=== PATIENT | male | born 1935 | race Caucasian/White ===

== ENCOUNTER 2016-12-25 04:29 | Emergency (ER) | payer MEDICARE ==
[2016-12-25] MEDS ORDERED: IOPAMIDOL 370 (76%) 100 ML VIAL IV ONE (04:30)
[2016-12-25 05:29] LABS: ABSOLUTE NEUTROPHIL COUNT 8.2 K/mm3 (1.8-7.7); BASO % 0.2 % (0.2-1.0); EOS # 0.4 (0.0-0.5); EOS % 3.5 % (0.9-2.9); HEMOGLOBIN 12.9 gm/l (14.0-18.0); IMM NEUT # 0.1 K/mm3 (0-0.2); IMM NEUT% 0.7 % (0-1); LYMPH # 0.9 (1.0-4.8); LYMPH % 8.2 % (15-45); MEAN CELL VOLUME 90.3 fl (80.0-94.0); MEAN CORPUSCULAR HEMOGLOBIN 29.9 pg (27.0-31.0); MEAN CORPUSCULAR HGB CONC 33.1 g/dl (33.0-37.0); MEAN PLATELET VOLUME 9.4 fl (7.4-10.4); MONO # 0.9 (0.0-0.8); MONO % 8.3 % (4-12); NEUT % 79.1 % (43-75); PLATELET COUNT 253 K/mm3 (130-400); RED CELL DISTRIBUTION WIDTH 12.8 % (11.5-14.5)
[2016-12-25] MEDS ORDERED: AZITHROMYCIN 250 MG TABLET ONE (06:33)
[2016-12-25 06:34] LABS: ALB/GLOB RATIO 1.3 (>1.0); ALBUMIN 3.5 gm/dL (3.5-5.7); CALCIUM 8.7 mg/dL (8.6-10.3)
[2016-12-25 06:35] LABS: TROPONIN I < 0.01 ng/ml (0.0-0.06)
[2016-12-25 06:40] LABS: CKMB ISOENZYME 2.1 ng/ml (0.6-6.3)
--- NOTE | 2016-12-25 06:41 | RAD ---
History: Cough with dyspnea. Comparison: 04/03/2011. Technique: 2 views Findings: The soft tissue and bony structures are appropriate. The heart size is stable. There is subtle linear atelectasis or scarring identified within the left pulmonary base. The hilar and mediastinal structures appear to be intact. Impression: 1. Minimal left basilar atelectasis or scarring.
[2016-12-25] MEDS ORDERED: ALBUTEROL/IPRATROPIUM 2.5/0.5 MG 3 ML/EACH DOSE ONE (06:49)
--- NOTE | 2016-12-25 08:12 | CT ---
CTA CHEST FOR PE History: Dyspnea. Comparison: None. Procedure: 1 mm axial images were obtained through the chest following the administration of 80cc's of Isovue-370 intravenous contrast. Stacked reconstructed 3 mm images were then photographed in the axial, coronal and sagittal planes. 3-D reconstructed MIP images were also performed on the scanner workstation. Findings: The visualized thyroid gland appears to be appropriate. A few scattered nonenlarged mediastinal lymph nodes are present. There is mild bilateral hilar adenopathy suggested however. The aortic caliber is appropriate. The heart size is borderline. There is atherosclerotic calcification of the coronary vessels suggested. The pericardial structures appear to be normal. The visualized esophagus is unremarkable. The pulmonary arterial tree is suboptimally opacified. However no definitive filling defects are seen within the main, primary or secondary pulmonary arterial branches. The central airways appear to be clear. Linear dependent atelectasis or scarring is present. No effusion or pneumothorax is visualized. Scans to the upper abdomen demonstrate prior cholecystectomy with fatty infiltration of the pancreas. Multilevel thoracic degenerative changes are identified. Impression: 1. Suboptimal opacification of the pulmonary arterial tree though no definitive findings of a pulmonary embolus are observed. 2. Borderline cardiac size. 3. Mild bilateral hilar adenopathy. 4. Dependent atelectasis or scarring. 5. Suggested atherosclerotic calcification of the coronary vessels. 6. Prior cholecystectomy. 7. Fatty infiltration of the pancreas. 8. Multilevel thoracic degenerative changes.
== END 2016-12-25 09:14 | disposition home or self-care (01) ==
LOC: ED 04:29
DX: J40 Bronchitis, not specified as acute or chronic (principal); I25.10 Atherosclerotic heart disease of native coronary artery without angina pectoris; I25.2 Old myocardial infarction; E11.9 Type 2 diabetes mellitus without complications; Z79.84 Long term (current) use of oral hypoglycemic drugs